=== PATIENT | female | born 1985 | race Caucasian/White ===

== ENCOUNTER 2018-03-21 10:31 | Emergency (ER) | payer OTHER | END 2018-03-21 11:05 | disposition home or self-care (01) | LOC: ER 10:31 | DX: M54.2 Cervicalgia (principal); M54.6 Pain in thoracic spine; M25.559 Pain in unspecified hip; Z88.5 Allergy status to narcotic agent; Z88.8 Allergy status to other drugs, medicaments and biological substances; V43.42XA Person boarding or alighting a car injured in collision with other type car, initial encounter; Y93.89 Activity, other specified; Y99.8 Other external cause status; Y92.412 Parkway as the place of occurrence of the external cause | CPT/HCPCS: 99281 ==

== ENCOUNTER 2019-07-18 09:06 | Emergency (ER) | payer SELFPAY ==
[~2019-07-18] VITALS: Ht 157.5 cm; Wt 54.0 kg
[2019-07-18 09:26] VITALS: BP 119/70
[2019-07-18] MEDS ORDERED: HYDR25TA PO (09:38)
[2019-07-18] MEDS ORDERED: METH4TAB2 PO (09:38)
[2019-07-18] MEDS ORDERED: ACET-704 PO (09:39)
[2019-07-18] MEDS ORDERED: BETA15OI6 TP (09:39)
--- NOTE | 2019-07-18 09:39 | PHYS DOC ---
Past Medical History Past Medical History: Other Additional Past Medical Histor: Interstitial Cystitis Past Surgical History: Tonsillectomy, Tubal ligation Additional Past Surgical Histo: Right Trigger finger release Alcohol Use: None Drug Use: None Adult General Chief Complaint Chief Complaint: SKIN PROBLEM HPI HPI Patient is a 34 year old male who presents with complaining of poison s[place]. Patient states she was exposed to poison [place] 4 days ago and in complaining of painful itching of right upper extremity, neck, flank, right lower extremity. Patient complaining of itching and pain without fever and chills, shortness of breath, sick contact, nausea and vomiting. Review of Systems Review of Systems Constitutional: Denies fever or chills [] Eyes: Denies change in visual acuity, redness, or eye pain [] HENT: Denies nasal congestion or sore throat [] Respiratory: Denies cough or shortness of breath [] Cardiovascular: No additional information not addressed in HPI [] GI: Denies abdominal pain, nausea, vomiting, bloody stools or diarrhea [] : Denies dysuria or hematuria [] Musculoskeletal: Denies back pain or joint pain [] Integument: Reports rash Neurologic: Denies headache, focal weakness or sensory changes [] Endocrine: Denies polyuria or polydipsia [] All other systems were reviewed and found to be within normal limits, except as documented in this note. Current Medications Current Medications Current Medications Medications (Trade) Dose Ordered Sig/Luis Manuel Start Time Stop Time Status Last Admin Dose Admin Methylprednisolone Sodium Succinate (SOLU-Medrol 125MG VIAL) 125 mg 1X ONCE 07/18/19 09:45 07/18/19 09:46 DC 07/18/19 09:41 125 MG Allergies Allergies Allergies Coded Allergies Type Severity Reaction Last Updated Verified adhesive tape Allergy Intermediate blisters 03/21/18 Yes morphine Allergy Intermediate vomiting 07/18/19 Yes Physical Exam Physical Exam Constitutional: Well developed, well nourished, mild distress, non-toxic appearance. [] HENT: Normocephalic, atraumatic. Eyes: PERRLA, EOMI, conjunctiva normal, no discharge. [] Neck: Normal range of motion, no tenderness, supple, no stridor. [] Cardiovascular:Heart rate regular rhythm, no murmur [] Lungs & Thorax: Bilateral breath sounds clear to auscultation [] Skin: Warm, dry, multiple areas of poison [place] lesion in right upper extremity, neck, trunk, right right without sign of infection. Back: No tenderness, no CVA tenderness. [] Extremities: No tenderness, no cyanosis, no clubbing, ROM intact, no edema. [] Neurologic: Alert and oriented X 3, no focal deficits noted. [] Psychologic: Affect anxious, normal, mood normal. [] Current Patient Data Vital Signs Vital Signs Date Time Temp Pulse Resp B/P (MAP) Pulse Ox O2 Delivery O2 Flow Rate FiO2 07/18/19 09:26 97.8 18 119/70 (86) 97.8 EKG EKG [] Radiology/Procedures Radiology/Procedures [] Course & Med Decision Making Course & Med Decision Making Evaluation of patient in ER showed 34-year-old female patient with poison [place] dermatitis for 4 days that did not get better with [id number] medication. Patient treated with Solu-Medrol in ER and plan to discharge home with prescription of hydroxyzine, betamethasone ointment, Medrol Dosepak and Tylenol No. 3. Dragon Disclaimer Dragon Disclaimer This electronic medical record was generated, in whole or in part, using a voice recognition dictation system. Departure Departure Impression: Primary Impression: Allergic dermatitis due to poison [place] Disposition: HOME, SELF-CARE Condition: STABLE Referrals: NO PCP (PCP) Patient Instructions: Poison [place] Additional Instructions: Drink plenty of liquids Follow-up with your primary care physician in 3-5 days Return to ER if not getting better Scripts Acetaminophen With Codeine (TYLENOL WITH CODEINE #3 TABLET) 1 Each Tablet 1 TAB PO PRN Q6HRS PRN for PAIN, #10 TAB Prov: SAM ALLEN MD 07/18/19 Betamethasone/Propylene Glyc (BETAMETHASONE DP AUG 0.05% OIN) 15 Gm Oint...g. 1 GM TP BID, #60 MISC Prov: SAM ALLEN MD 07/18/19 Methylprednisolone (MEDROL) 4 Mg Tab.ds.pk 1 PKG PO UD for inflammation, #1 PKG Prov: SAM ALLEN MD 07/18/19 Hydroxyzine Hcl (HYDROXYZINE HCL) 25 Mg Tablet 1 TAB PO TID PRN for itching, #30 TAB Prov: SAM ALLEN MD 07/18/19 SAM ALLEN MD Jul 18, 2019 09:39
[2019-07-18] MEDS ORDERED: methylPREDNISolone SOD SUCC PF 125 MG/2 ML VIAL. IM ONE (09:45)
== END 2019-07-18 09:52 | disposition home or self-care (01) ==
LOC: ER 09:06
DX: L23.7 Allergic contact dermatitis due to plants, except food (principal); Z88.5 Allergy status to narcotic agent; Z88.8 Allergy status to other drugs, medicaments and biological substances
CPT/HCPCS: 96372; 99283; J2930